=== PATIENT | female | born 1965 | race Caucasian/White ===

== ENCOUNTER 2017-06-24 06:48 | Day surgery (SDC) | payer BC ==
[~2017-06-24 06:48] MED LIST: Lactated Ringers 1,000 ML IV SCH; Sodium Chloride 0.9% 10 ML Syringe FLUSH PRN; Sodium Chloride 0.9% 2.5 ML Syringe FLUSH PRN
--- NOTE | 2017-06-24 07:25 | PCM.PREANE ---
Preanesthetic Assessment - Anesthesia/Transfusion/Family Hx Other Type of Anesthesia Reaction Comment: "HR went up during abdominoplasty" Family History of Anesthesia Reaction: No Transfusion History: Prior Transfusion Without Reaction Intubation History: Unknown - Review of Systems General: No Symptoms Pulmonary: No Symptoms Cardiovascular: No Symptoms Gastrointestinal: No Symptoms, Other (h/o colon polyps 5 years ago) Neurological: No Symptoms Other: Reports: None - Physical Assessment Height: 1.6 m Weight: 84.368 kg ASA Class: 2 Mental Status: Alert & Oriented x3 Airway Class: Mallampati = 2 Dentition: Reports: Normal Dentition Thyro-Mental Finger Breadths: 3 Mouth Opening Finger Breadths: 3 ROM/Head Extension: Full Lungs: Clear to Auscultation, Normal Respiratory Effort Cardiovascular: Regular Rate, Regular Rhythm - Lab Values: Laboratory Last Values Urine HCG, Qual NEGATIVE (NEGATIVE) 06/24/17 06:53 - Allergies Allergies/Adverse Reactions: Allergies Allergy/AdvReac Type Severity Reaction Status Date / Time No Known Allergies Allergy Verified 06/21/17 08:19 - Blood Blood Available: No - Anesthesia Plan Pre-Op Medication Ordered: None - Acknowledgements Anesthesia Type Planned: MAC Pt an Appropriate Candidate for the Planned Anesthesia: Yes Alternatives and Risks of Anesthesia Discussed w Pt/Guardian: Yes Pt/Guardian Understands and Agrees with Anesthesia Plan: Yes PreAnesthesia Questionnaire HEENT History: Reports: Other (See Below) Other HEENT History: wears glasses/contacts Cardiovascular History: Reports: Heart Murmur Gastrointestinal History: Reports: None Genitourinary History: Reports: None 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: Musculoskeletal History: Reports: Arthritis Other Musculoskeletal History: arthritis in rt knee Endocrine/Metabolic History: Reports: Obesity/BMI 30+ Hematologic History: Reports: Anemia, Blood Transfusion(s) Dermatologic History: Reports: None - Past Surgical History Head Surgeries/Procedures: Reports: None GI Surgical History: Reports: Bariatric Procedure Female Surgical History: Reports: Section (x3), Endometrial Ablation Dermatological Surgical History: Reports: Other (See Below) - SUBSTANCE USE Smoking Status *Q: Never Smoker Tobacco Use Within Last Twelve Months: No Days Per Week of Alcohol Use: 2 Number of Drinks Per Day: 1 Total Drinks Per Week: 2 Recreational Drug Use History: No - HOME MEDS Home Medications: Home Meds Multivitamin [Multivitamins] 1 tab PO DAILY 10/10/14 [History] - CURRENT (IN HOUSE) MEDS Current Meds: Current Medications Lactated Ringer's (Ringers, Lactated) 1,000 mls @ 125 mls/hr IV ASDIRECTED VIKA Last Admin: 06/24/17 06:59 Dose: 125 mls/hr Sodium Chloride (Saline Flush) 10 ml FLUSH ASDIRECTED PRN PRN Reason: Keep Vein Open Sodium Chloride (Saline Flush) 2.5 ml FLUSH ASDIRECTED PRN PRN Reason: Keep Vein Open Sodium Chloride (Saline Flush) 10 ml FLUSH ASDIRECTED PRN PRN Reason: Keep Vein Open Sodium Chloride (Saline Flush) 2.5 ml FLUSH ASDIRECTED PRN PRN Reason: Keep Vein Open
[2017-06-24] MEDS ORDERED: Lidocaine 2% 5 ML SDV ONE (07:46)
[2017-06-24] MEDS ORDERED: Propofol 200 MG/20 ML SDV ONE (07:46)
--- NOTE | 2017-06-24 08:24 | PCM.OPNOTE ---
- General Post-Op/Procedure Note Date of Surgery/Procedure: 06/24/17 Operative Procedure(s): Colonoscopy Findings: Mild hemorrhoidal disease. Normal colonoscopy Pre Op Diagnosis: History of colon polyps Post-Op Diagnosis: Normal colonoscopy Anesthesia Technique: MAC Primary Surgeon: Monica Mcneil Condition: Good
--- NOTE | 2017-06-24 08:30 | PCM48HPAN ---
Post Anesthesia Note - EVALUATION WITHIN 48HRS OF ANESTHETIC Vital Signs in Normal Range: Yes Patient Participated in Evaluation: Yes Respiratory Function Stable: Yes Airway Patent: Yes Cardiovascular Function Stable: Yes Hydration Status Stable: Yes Pain Control Satisfactory: Yes Nausea and Vomiting Control Satisfactory: Yes Mental Status Recovered: Yes Resp Rate: 16 - COMMENTS/OBSERVATIONS Free Text/Narrative:: No anesthesia problems, patient skipped recovery room phase of postoperative care.
[2017-06-24 08:41] VITALS: BP 126/66
--- NOTE | 2017-06-24 11:51 | OR ---
SURGEON: DARNELL MCINTYRE MD DATE OF PROCEDURE: 06/24/2017 PREOPERATIVE DIAGNOSIS: History of colon polyps. POSTOPERATIVE DIAGNOSIS: Normal colonoscopy. PROCEDURE PERFORMED: Screening colonoscopy. ANESTHESIA: MAC. INSTRUMENT USED: Olympus colonoscope. EXTENT OF EXAM: To the cecum. PREPARATION: Good. LIMITATIONS: None. INDICATIONS FOR EXAMINATION: The patient is a 51-year-old female who presents with a history of colon polyps. Her last colonoscopy was 5 years ago. The patient and I discussed the need for a repeat colonoscopy. We discussed the procedure, expected perioperative course, and risks including bleeding, infection, or damage to surrounding structures including perforation. The patient verbalized understanding and wishes to proceed. PROCEDURE IN DETAIL: The patient was brought into the endoscopy suite and placed in the left lateral decubitus position. A time-out was completed verifying the patient's name, age, date of , allergies, and procedure to be performed. A monitored anesthesia care was induced and continuous oxygen was provided via nasal cannula throughout the procedure. After adequate sedation was achieved, a digital rectal exam was performed. This exam revealed grade 2 hemorrhoids. A well lubricated colonoscope was inserted into the rectum and advanced under direct visualization to the level of cecum. The cecum was identified by both visual and anatomic landmarks. A photograph was taken of the cecal cap. I retroflexed the scope within the cecum and inspected the area underneath the cecal cap. No abnormalities were noted. The scope was then fully withdrawn while examining the color, texture, anatomy, and integrity of the mucosa from the cecum to the anal canal. The patient was found to have normal a colonic mucosa. The scope was brought into the rectum and retroflexed to allow visualization of the anal canal opening. The patient was noted to have grade 1-2 hemorrhoids. The scope was then straightened out and fully withdrawn from the patient. The patient tolerated procedure well and was taken to PACU in stable condition. The cecum to anus time was 8 minutes. ENDOSCOPIC DIAGNOSIS: Normal colonoscopy. RECOMMENDATIONS: Follow up in clinic in 5 years. AVNI TRIPATHI /[id number]
== END 2017-06-24 08:39 | disposition home or self-care (01) ==
LOC: MW.SDS 06:48
PROVIDERS: ATTEND Surgery
DX: Z12.11 Encounter for screening for malignant neoplasm of colon (principal); K64.1 Second degree hemorrhoids; B37.2 Candidiasis of skin and nail; M17.11 Unilateral primary osteoarthritis, right knee; L98.7 Excessive and redundant skin and subcutaneous tissue; L30.4 Erythema intertrigo; E66.9 Obesity, unspecified; Z68.30 Body mass index [BMI] 30.0-30.9, adult; Z86.010 Personal history of colon polyps; Z79.899 Other long term (current) drug therapy
CPT/HCPCS: 45378; 81025; J7120; J2704

== ENCOUNTER 2018-10-10 06:24 | Inpatient (IN) | payer BC ==
[~2018-10-10 06:24] MED LIST changes: +Acetaminophen 1,000 MG in Premix Bag 1 BAG IV SCH; +Famotidine 20 MG/2 ML SDV IVPUSH SCH; -Lactated Ringers 1,000 ML IV SCH; +Scopolamine 1.5 MG Transdermal Patch TRDERM SCH; -Sodium Chloride 0.9% 10 ML Syringe FLUSH PRN; -Sodium Chloride 0.9% 2.5 ML Syringe FLUSH PRN
[2018-10-10] MEDS: Lactated Ringers 1,000 ML IV SCH ×2 (07:00→16:28)
--- NOTE | 2018-10-10 07:15 | PCM.PREANE ---
Preanesthetic Assessment - Anesthesia/Transfusion/Family Hx Anesthesia History: Prior Anesthesia Without Reaction Other Type of Anesthesia Reaction Comment: "HR went up during abdominoplasty" Family History of Anesthesia Reaction: No Transfusion History: Prior Transfusion Without Reaction Intubation History: Unknown - Review of Systems General: No Symptoms Pulmonary: No Symptoms Cardiovascular: No Symptoms Gastrointestinal: No Symptoms Neurological: No Symptoms Other: Reports: None - Physical Assessment O2 Sat by Pulse Oximetry: 98 Respiratory Rate: 15 Vital Signs: Last Vital Signs Temp 36.3 C 10/10/18 06:51 Pulse 58 L 10/10/18 06:51 Resp 15 10/10/18 06:51 BP 152/89 H 10/10/18 06:51 Pulse Ox 98 10/10/18 06:51 Height: 5 ft 3 in Weight: 84.368 kg ASA Class: 2 Mental Status: Alert & Oriented x3 Airway Class: Mallampati = 2 Dentition: Reports: Normal Dentition Thyro-Mental Finger Breadths: 3 Mouth Opening Finger Breadths: 3 ROM/Head Extension: Full Lungs: Clear to Auscultation, Normal Respiratory Effort Cardiovascular: Regular Rate, Regular Rhythm - Allergies Allergies/Adverse Reactions: Allergies Allergy/AdvReac Type Severity Reaction Status Date / Time morphine Allergy Cannot Verified 10/10/18 07:04 Remember metal isiah Allergy Redness Uncoded 10/10/18 07:05 - Blood Blood Available: No - Anesthesia Plan Pre-Op Medication Ordered: None - Acknowledgements Anesthesia Type Planned: Spinal (general anesthesia back-up) Pt an Appropriate Candidate for the Planned Anesthesia: Yes Alternatives and Risks of Anesthesia Discussed w Pt/Guardian: Yes Pt/Guardian Understands and Agrees with Anesthesia Plan: Yes PreAnesthesia Questionnaire HEENT History: Reports: Other (See Below) Other HEENT History: wears glasses/contacts Cardiovascular History: Reports: Heart Murmur Gastrointestinal History: Reports: None Genitourinary History: Reports: 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: Musculoskeletal History: Reports: Arthritis Other Musculoskeletal History: arthritis in rt knee Endocrine/Metabolic History: Reports: Obesity/BMI 30+ Hematologic History: Reports: Anemia, Blood Transfusion(s) Dermatologic History: Reports: None - Past Surgical History Head Surgeries/Procedures: Reports: None GI Surgical History: Reports: Bariatric Procedure Female Surgical History: Reports: Section, Endometrial Ablation Other Female Surgeries/Procedures: x3, Abdominoplasty Dermatological Surgical History: Reports: Other (See Below) - SUBSTANCE USE Smoking Status *Q: Never Smoker Recreational Drug Use History: No - HOME MEDS Home Medications: Home Meds Ferrous Sulfate 325 mg PO BID 10/04/18 [History] - CURRENT (IN HOUSE) MEDS Current Meds: Current Medications Famotidine (Pepcid) 40 mg IVPUSH ONARRIVE [facility] Last Admin: 10/10/18 07:02 Dose: 40 mg Acetaminophen 1,000 mg/ Premix 100 mls @ 400 mls/hr IV ONARRIVE VIKA Last Admin: 10/10/18 07:04 Dose: 400 mls/hr Cefazolin Sodium/Dextrose 2 gm (/ Premix) 50 mls @ 100 mls/hr IV ONCALL VIKA Ropivacaine 49.25 ml/Ketorolac Tromethamine 30 mg/Epinephrine HCl 0.5 mg/ Clonidine HCl 80 mcg/ Sodium Chloride 75 mls @ 50 mls/sec INJECT ASDIRECTED VIKA Lactated Ringer's (Ringers, Lactated) 1,000 mls @ 100 mls/hr IV ASDIRECTED VIKA Last Admin: 10/10/18 07:00 Dose: 100 mls/hr Tranexamic Acid 2,000 mg/ (Sodium Chloride) 120 mls @ 600 mls/hr IV ASDIRECTED ONE Stop: 10/10/18 08:11 Scopolamine (Transderm-Scop) 1.5 mg TRDERM ONARR[facility] Last Admin: 10/10/18 07:01 Dose: 1.5 mg
[2018-10-10] MEDS ORDERED: Sodium Chloride 0.9% 40 ML ONE (07:19)
[2018-10-10] MEDS ORDERED: ePHEDrine 50 MG/ML SDV ONE (07:19)
[2018-10-10] MEDS ORDERED: Ondansetron 4 MG/2 ML SDV ONE (07:19)
[2018-10-10] MEDS ORDERED: ceFAZolin 1 GM Vial ONE (07:19)
[2018-10-10] MEDS ORDERED: Propofol 200 MG/20 ML SDV ONE ×3 (07:22→09:28)
[2018-10-10] MEDS ORDERED: Midazolam 1 MG/ML 2 ML SDV ONE (07:22)
[2018-10-10] MEDS ORDERED: Tranexamic Acid 2,000 MG in Sodium Chloride 0.9% 100 ML IV ONE (08:00)
[2018-10-10] MEDS ORDERED: Ropivacaine 49.25 ML, Ketorolac 30 MG, EPINEPHrine 0.5 MG, cloNIDine 80 MCG in Sodium C... INJECT SCH (08:00)
[2018-10-10] MEDS ORDERED: ceFAZolin 2 GM in Premix Bag 1 BAG IV SCH (08:00)
[2018-10-10] MEDS ORDERED: fentaNYL 100 MCG/2 ML SDV ONE (09:15)
[2018-10-10] MEDS ORDERED: Glycopyrrolate 0.2 MG/ML SDV ONE (09:56)
[2018-10-10] MEDS ORDERED: Metoprolol Tartrate 5 MG/5 ML SDV ONE (09:59)
[2018-10-10] MEDS ORDERED: HYDROmorphone 2 MG/ML SDV IVPUSH PRN (10:17)
[2018-10-10] MEDS ORDERED: Bisacodyl 10 MG Supp RECTAL PRN (10:17)
[2018-10-10] MEDS ORDERED: Aluminum Hydroxide/Magnesium Hydroxide/Simethicone Susp 30 ML Cup PO PRN (10:17)
[2018-10-10] MEDS ORDERED: diphenhydrAMINE 25 MG Cap PO PRN (10:17)
[2018-10-10] MEDS ORDERED: Ondansetron 4 MG/2 ML SDV IVPUSH PRN (10:17)
[2018-10-10] MEDS ORDERED: Docusate Sodium 100 MG Cap PO PRN (10:17)
[2018-10-10] MEDS ORDERED: Sodium Chloride 0.9% 2.5 ML Syringe FLUSH PRN (10:19)
[2018-10-10] MEDS ORDERED: Sodium Chloride 0.9% 10 ML Syringe FLUSH PRN (10:19)
--- NOTE | 2018-10-10 10:53 | PCM.OPNOTE ---
- General Post-Op/Procedure Note Date of Surgery/Procedure: 10/10/18 Operative Procedure(s): R TKA Post-Op Diagnosis: DJD R knee Anesthesia Technique: Moderate Sedation, Spinal Primary Surgeon: Madiha Harris Visually Impaired Teacher: Roseann Westfall Visually Impaired Teacher: Virginia Jo EBL in mLs: 50 Condition: Good Free Text/Narrative:: tt=47 min #[id number]
[2018-10-10] MEDS: Ketorolac 30 MG/ML SDV IVPUSH SCH ×3 (11:00→22:39)
[2018-10-10] MEDS ORDERED: HYDROmorphone 1 MG/ML Syringe IVPUSH PRN (11:47)
[2018-10-10] MEDS: Acetaminophen 1,000 MG in Premix Bag 1 BAG IV SCH ×2 (13:25→19:28)
--- NOTE | 2018-10-10 13:57 | OR ---
SURGEON: Madiha Harris MD DATE OF PROCEDURE: 10/10/2018 PREOPERATIVE DIAGNOSIS: Degenerative joint disease, right knee, tricompartmental. POSTOPERATIVE DIAGNOSIS: Degenerative joint disease, right knee, tricompartmental. PROCEDURE PERFORMED: Right total knee arthroplasty using patient specific instrumentation. PRIMARY SURGEON: Madiha Harris MD. TECHNICAL INSTRUCTOR COURSE DEVELOPER: Cordelia Wade and BASSAM Perdomo. ANESTHESIA: Spinal with sedation. ESTIMATED BLOOD LOSS: 50 mL. TOURNIQUET TIME: 47 minutes. COMPLICATIONS: None. DVT PROPHYLAXIS: PAS boot to the nonoperative leg. IMPLANTS USED: Guicho persona femoral component size 9 standard (LPS), tibial component size E, 11 mm all-polyethylene articular surface, and 35 mm all-polyethylene patella. FINDINGS: Intraoperative findings showed severe tricompartmental degenerative changes. There was complete eburnation of the bone along the medial femoral condyle. Osteophyte formation was also noted. No significant synovitis was found. Bone quality appeared normal. BRIEF HISTORY: Sierra is a 53-year-old female who has had complaint of progressive right knee pain. Her x-rays did confirm degenerative findings. Due to her lack of response to conservative treatment, I did recommend surgical intervention. The risks and goals of the procedure were discussed with the patient and were documented preoperatively. She agreed to proceed. DESCRIPTION OF PROCEDURE: The patient was properly identified and brought to the operating room. The patient was then transferred from the operating room cart and placed on the operating table in a supine position. Anesthesia was administered by the anesthesia staff. After adequate anesthesia was obtained, a well-padded tourniquet was applied to the surgical lower extremity. Fonseca catheter was placed. The lower extremity was then prepped in standard fashion using ChloraPrep solution. It was then sterilely draped. A time-out was performed to ensure correct site and procedure. Preoperative antibiotics were given along with one gram of tranexamic acid IV. The surgical site had been marked preoperatively. An Esmarch was used to exsanguinate the right lower extremity and the tourniquet was inflated. An incision was made over the anterior aspect of the knee. The subcutaneous tissues were dissected down to the level of the fascia. A medial parapatellar approach to the knee was made. A portion of the infrapatellar fat pad was then excised. The distal femur was then exposed. The femoral patient-specific cutting guide was then placed. Pins were also placed. The distal femoral cutting block was placed and the distal femoral cut was made. Instrumentation was then removed. Both Whitesides' line and the epicondylar axis were then marked with electrocautery. The 4-in-1 cutting block was placed. This was placed in a slightly externally rotated position, which corresponded well with the previously drawn lines. The cutting guide was then pinned into position. An Marcos wing guide was used to check the depth of resection of our anterior condylar cut and it was felt that no notching would occur. The anterior condylar cut was then made followed by the posterior condylar cut. Both the posterior chamfer and anterior chamfer cuts were then made. The cutting block was then removed along with the excess bony remnants. We then turned our attention to the tibia. The anterior cruciate ligament and posterior cruciate ligament were released and a posterior cruciate ligament retractor was placed to allow the tibia to be pulled anteriorly. The tibial patient-specific guide was then placed on the proximal tibia. This fit anatomically. The pins were then placed. The proximal tibia cutting guide was then placed and screwed into position. The proximal tibial resection was then made with care being taken to protect the patellar tendon. The bony resection was then removed. The remainder of the medial and lateral meniscus were then excised. Care was taken to protect the popliteus tendon. The tibia was then sized to the appropriate size. The distal femur was then elevated. The posterior capsule was stripped off the distal femur both medially and laterally. The posterior capsule along with the medial and lateral gutters were then injected with a standard mixture consisting of clonidine, epinephrine, Toradol, and Ropivacaine, unless any allergies were found preoperatively. The femoral component was then placed onto the distal femur in a slightly lateral position. This fit the femur well. A box cut was then made without difficulty. This was then removed. The tibial trial along with the polyethylene liner was then placed. The knee came easily into full extension and was stable to varus and valgus stressing both in full extension and flexion. Any additional releases were performed at this time. We then returned our attention to the patella. The patella was everted and towel clamps were used to hold the patella in position. It was resected to a 15 millimeter thickness. It was then sized to the appropriate size. It was prepared in the usual fashion after placing the predetermined size clamps. This was placed in a slightly superior and medial position. The clamp was then removed. The patellar trial button was placed. The knee was taken through a range of motion using the no-touch technique. The patella tracked centrally. A drop jose a was then placed to check alignment. All instruments were then removed from the knee. The tibial sizer was then placed on the tibia. The tibia was prepared in the usual fashion using the reamer and broach. This was then removed. All bony surfaces were copiously irrigated with Pulsavac solution. They were then suctioned dry. Cement was prepared on the back table in the usual manner. Once it was prepared, the bone ends were again suctioned dry. The tibia was cemented into place first. This was malleted into position. Excess cement was then cleared. The femur was then placed in a similar manner. We placed the polyethylene trial into place and the knee was brought into full extension. An axial load was placed while keeping the knee in full extension. The patella button was also cemented into position and the clamp was used to hold this in place as the cement was allowed to cure. The wound was again copiously irrigated with saline solution using a Pulsavac chief sustainability officer. Following this 1 g of tranexamic acid was applied to the wound topically. After we had adequate curing of the cement, the knee was again taken through a range of motion. The size of the polyethylene was then determined. The polyethylene trial was then removed. The tibial tray was suctioned to make sure there was no remaining soft tissue or cement. Excess cement was cleared from around the edges of the prosthesis as well. The tourniquet was then deflated. We were able to observe for any excess bleeding and none was noted. Electrocautery was used to maintain hemostasis. An additional gram of tranexamic acid was given IV. The retractors were again placed and the predetermined polyethylene was then placed. This was locked into position without difficulty. The knee was again taken through a range of motion with no change from the prior exam. The fascial layer was closed with Number One Vicryl. The subcutaneous tissues were closed with 2-0 Vicryl. The skin was closed with 3-0 Monocryl, steri- strips, and mastisol. Xeroform gauze was placed over the wound and a bulky dressing was applied. The patient was then awakened from anesthesia and transferred back to the operating room cart. They were brought to the recovery room in stable condition. All needle and sponge counts were correct. MAT TRIPATHI /[id number] MTDD
--- NOTE | 2018-10-10 14:11 | CR ---
EXAMINATION: Right knee HISTORY: Total knee hardware COMPARISON: 05/14/2017 TECHNIQUE: 2 views FINDINGS/IMPRESSION: Right total knee hardware is demonstrated in good position and alignment. Operative soft tissue changes are noted.
[2018-10-10] MEDS: ceFAZolin 2 GM in Premix Bag 1 BAG IV SCH (17:58)
[2018-10-10] MEDS: oxyCODONE 5 MG Tab PO PRN (18:07)
[2018-10-10] MEDS: Ferrous Sulfate 325 MG Tab PO SCH (21:19)
--- NOTE | 2018-10-11 00:04 | PCM48HPAN ---
Post Anesthesia Note - EVALUATION WITHIN 48HRS OF ANESTHETIC Vital Signs in Normal Range: Yes Patient Participated in Evaluation: Yes Respiratory Function Stable: Yes Airway Patent: Yes Cardiovascular Function Stable: Yes Hydration Status Stable: Yes Pain Control Satisfactory: Yes Nausea and Vomiting Control Satisfactory: Yes Mental Status Recovered: Yes Pulse Rate: 55 SaO2: 97 Resp Rate: 17 Temperature: 97.1 F Blood Pressure: 128/71
[2018-10-11] MEDS: Acetaminophen 1,000 MG in Premix Bag 1 BAG IV SCH (00:27)
[2018-10-11] MEDS: ceFAZolin 2 GM in Premix Bag 1 BAG IV SCH (00:46)
[2018-10-11] MEDS: Ketorolac 30 MG/ML SDV IVPUSH SCH (04:50)
[2018-10-11] MEDS: oxyCODONE 5 MG Tab PO PRN (05:36)
[2018-10-11] MEDS: Acetaminophen/oxyCODONE 325-5 MG Tab PO PRN ×2 (07:58→12:33)
[2018-10-11] MEDS: Ferrous Sulfate 325 MG Tab PO SCH (08:02)
[2018-10-11] MEDS ORDERED: Polyethylene Glycol 3350 Powder 17 GM Packet PO SCH (09:00)
[2018-10-11] MEDS ORDERED: Aspirin 325 MG Tab.EC PO SCH (09:00)
[2018-10-11] MEDS ORDERED: Celecoxib 100 MG Cap PO SCH (09:00)
[2018-10-11] MEDS ORDERED: Famotidine 20 MG Tab PO SCH (09:00)
[2018-10-11 09:32] VITALS: BP 160/60
--- NOTE | 2018-10-11 12:15 | PCM.SURGPN ---
- General Info Date of Service: 10/11/18 Date of Surgery/Procedure: 10/10/18 POD#: 1 Functional Status: Reports: Pain Controlled, Tolerating Diet, Ambulating, Urinating - Review of Systems General: Reports: No Symptoms Pulmonary: Denies: Shortness of Breath Cardiovascular: Denies: Palpitations, Lightheadedness Musculoskeletal: Reports: Leg Pain Systems Review Comment:: pt up to chair for breakfast pain controlled with PO/IV pain medications has been OOB ambulating no CP/SOB/lightheadedness, no N/V no specific concerns today - Patient Data Vitals - Most Recent: Last Vital Signs Temp 98.2 F 10/11/18 08:00 Pulse 64 10/11/18 08:00 Resp 16 10/11/18 08:00 BP 160/60 H 10/11/18 08:00 Pulse Ox 97 10/11/18 08:00 Weight - Most Recent: 84.368 kg I&O - Last 24 Hours: Intake & Output 10/10/18 10/11/18 10/11/18 22:59 06:59 14:59 Intake Total 100 3922 Output Total 6000 600 Balance 100 -2078 -600 Lab Results Last 24 Hrs: Laboratory Results - last 24 hr 10/11/18 Range/Units 05:21 Hgb 8.0 L (12.0-16.0) g/dL Hct 28.5 L (36.0-46.0) % Med Orders - Current: Current Medications Al Hydroxide/Mg Hydroxide (Mag-Al Plus) 30 ml PO Q4H PRN PRN Reason: Indigestion Aspirin (Ecotrin) 325 mg PO BID [facility] Last Admin: 10/11/18 08:01 Dose: 325 mg Bisacodyl (Dulcolax) 10 mg RECTAL DAILY PRN PRN Reason: Constipation Celecoxib (Celebrex) 200 mg PO BID [facility] Last Admin: 10/11/18 08:01 Dose: 200 mg Diphenhydramine HCl (Benadryl) 25 - 50 mg PO Q6H PRN PRN Reason: Itching Docusate Sodium (Colace) 100 mg PO BID PRN PRN Reason: Constipation Famotidine (Pepcid) 40 mg PO DAILY [facility] Last Admin: 10/11/18 08:01 Dose: 40 mg Ferrous Sulfate (Ferrous Sulfate) 325 mg PO BID [facility] Last Admin: 10/11/18 08:02 Dose: 325 mg Hydromorphone HCl (Dilaudid) 0.5 - 1 mg IVPUSH Q3H PRN PRN Reason: Pain Last Admin: 10/10/18 11:53 Dose: 1 mg Lactated Ringer's (Ringers, Lactated) 1,000 mls @ 100 mls/hr IV ASDIRECTED [facility] Last Admin: 10/10/18 16:28 Dose: 100 mls/hr Ondansetron HCl (Zofran) 4 mg IVPUSH Q6H PRN PRN Reason: Nausea/Vomiting Oxycodone/Acetaminophen (Percocet 325-5 Mg) 1 - 2 tab PO Q4H PRN PRN Reason: Pain Last Admin: 10/11/18 07:58 Dose: 2 tab Polyethylene Glycol (Miralax) 17 gm PO DAILY [facility] Last Admin: 10/11/18 08:00 Dose: 17 gm Scopolamine (Transderm-Scop) 1.5 mg TRDERM ONARRIVE [facility] Last Admin: 10/10/18 07:01 Dose: 1.5 mg Sodium Chloride (Saline Flush) 10 ml FLUSH ASDIRECTED PRN PRN Reason: Keep Vein Open Sodium Chloride (Saline Flush) 2.5 ml FLUSH ASDIRECTED PRN PRN Reason: Keep Vein Open Discontinued Medications Cefazolin Sodium (Ancef) Confirm Administered Dose 2 gm .ROUTE .STK-MED ONE Stop: 10/10/18 07:20 Ephedrine Sulfate (Ephedrine Sulfate) Confirm Administered Dose 50 mg .ROUTE .STK-MED ONE Stop: 10/10/18 07:20 Famotidine (Pepcid) 40 mg IVPUSH ONARRIVE [facility] Last Admin: 10/10/18 07:02 Dose: 40 mg Fentanyl (Sublimaze) Confirm Administered Dose 100 mcg .ROUTE .STK-MED ONE Stop: 10/10/18 09:16 Glycopyrrolate (Robinul) Confirm Administered Dose 0.2 mg .ROUTE .STK-MED ONE Stop: 10/10/18 09:57 Hydromorphone HCl (Dilaudid) 0.5 - 1 mg IVPUSH Q3H PRN PRN Reason: Pain Acetaminophen 1,000 mg/ Premix 100 mls @ 400 mls/hr IV ONARRIVE [facility] Last Admin: 10/10/18 07:04 Dose: 400 mls/hr Cefazolin Sodium/Dextrose 2 gm (/ Premix) 50 mls @ 100 mls/hr IV ONCALL [facility] Ropivacaine 49.25 ml/Ketorolac Tromethamine 30 mg/Epinephrine HCl 0.5 mg/ Clonidine HCl 80 mcg/ Sodium Chloride 75 mls @ 50 mls/sec INJECT ASDIRECTED [facility] Tranexamic Acid 2,000 mg/ (Sodium Chloride) 120 mls @ 600 mls/hr IV ASDIRECTED ONE Stop: 10/10/18 08:11 Last Admin: 10/10/18 16:16 Dose: Not Given Sodium Chloride (Normal Saline) Confirm Administered Dose 40 mls @ as directed .ROUTE .STK-MED ONE Stop: 10/10/18 07:20 Acetaminophen 1,000 mg/ Premix 100 mls @ 400 mls/hr IV Q6H [facility] Stop: 10/11/18 01:14 Last Admin: 10/11/18 00:27 Dose: 400 mls/hr Cefazolin Sodium/Dextrose 2 gm (/ Premix) 50 mls @ 100 mls/hr IV Q8H [facility] Stop: 10/11/18 01:29 Last Admin: 10/11/18 00:46 Dose: 100 mls/hr Ketorolac Tromethamine (Toradol) 30 mg IVPUSH Q6H [facility] Stop: 10/11/18 05:00 Last Admin: 10/11/18 04:50 Dose: 30 mg Metoprolol Tartrate (Lopressor) Confirm Administered Dose 5 mg .ROUTE .STK-MED ONE Stop: 10/10/18 10:00 Midazolam HCl (Versed 1 Mg/Ml) Confirm Administered Dose 2 mg .ROUTE .STK-MED ONE Stop: 10/10/18 07:23 Ondansetron HCl (Zofran) Confirm Administered Dose 4 mg .ROUTE .STK-MED ONE Stop: 10/10/18 07:20 Oxycodone HCl (Oxycodone) 5 - 10 mg PO Q4H PRN PRN Reason: Pain Stop: 10/11/18 06:00 Last Admin: 10/11/18 05:36 Dose: 10 mg Propofol (Diprivan 20 Ml) Confirm Administered Dose 200 mg .ROUTE .STK-MED ONE Stop: 10/10/18 07:23 Propofol (Diprivan 20 Ml) Confirm Administered Dose 200 mg .ROUTE .STK-MED ONE Stop: 10/10/18 07:24 Propofol (Diprivan 20 Ml) Confirm Administered Dose 400 mg .ROUTE .STK-MED ONE Stop: 10/10/18 09:29 Tranexamic Acid (Cyklokapron) Confirm Administered Dose 2,000 mg .ROUTE .STK- MED ONE Stop: 10/10/18 07:42 - Exam Wound/Incisions: Dressing Dry and Intact. No: Drainage, Erythema General: Alert, Oriented Cardiovascular: Regular Rate, Regular Rhythm Extremities: Other (exam RLE - dressing c/d/i, at/ehl/gastroc 5/5, dp 2+, sensation intact distally. ) Physical Findings Comment:: vss, afeb uo 2000+mL hgb 8.0 - Problem List Review Problem List Initiated/Reviewed/Updated: Yes - My Orders Last 24 Hours: Active Orders 24 hr Category Date Time Status Urinary Catheter Removal [RC] ASDIRECTED Care 10/11/18 06:00 Active HEMOGLOBIN/HEMATOCRIT,HH [HEME] DAILY Lab 10/12/18 06:00 Ordered Acetaminophen/oxyCODONE [Percocet 325-5 MG] Med 10/11/18 06:00 Active 1 - 2 tab PO Q4H PRN Aspirin [Ecotrin] Med 10/11/18 09:00 Active 325 mg PO BID Celecoxib [CeleBREX] Med 10/11/18 09:00 Active 200 mg PO BID Famotidine [Pepcid] Med 10/11/18 09:00 Active 40 mg PO DAILY Ferrous Sulfate Med 10/10/18 21:00 Active 325 mg PO BID HYDROmorphone [Dilaudid] Med 10/10/18 11:47 Active 0.5 - 1 mg IVPUSH Q3H PRN Polyethylene Glycol 3350 [MiraLAX] Med 10/11/18 09:00 Active 17 gm PO DAILY Convert IV to Saline Lock [OM.PC] PRN Oth 10/11/18 06:00 Ordered Medication Orders Al Hydroxide/Mg Hydroxide (Mag-Al Plus) 30 ml PO Q4H PRN PRN Reason: Indigestion Aspirin (Ecotrin) 325 mg PO BID [facility] Last Admin: 10/11/18 08:01 Dose: 325 mg Bisacodyl (Dulcolax) 10 mg RECTAL DAILY PRN PRN Reason: Constipation Celecoxib (Celebrex) 200 mg PO BID [facility] Last Admin: 10/11/18 08:01 Dose: 200 mg Diphenhydramine HCl (Benadryl) 25 - 50 mg PO Q6H PRN PRN Reason: Itching Docusate Sodium (Colace) 100 mg PO BID PRN PRN Reason: Constipation Famotidine (Pepcid) 40 mg PO DAILY [facility] Last Admin: 10/11/18 08:01 Dose: 40 mg Ferrous Sulfate (Ferrous Sulfate) 325 mg PO BID [facility] Last Admin: 10/11/18 08:02 Dose: 325 mg Admin: 10/10/18 21:19 Dose: 325 mg Hydromorphone HCl (Dilaudid) 0.5 - 1 mg IVPUSH Q3H PRN PRN Reason: Pain Last Admin: 10/10/18 11:53 Dose: 1 mg Lactated Ringer's (Ringers, Lactated) 1,000 mls @ 100 mls/hr IV ASDIRECTED [facility] Last Admin: 10/10/18 16:28 Dose: 100 mls/hr Infusion: 10/10/18 16:28 Dose: 100 mls/hr Admin: 10/10/18 07:00 Dose: 100 mls/hr Ondansetron HCl (Zofran) 4 mg IVPUSH Q6H PRN PRN Reason: Nausea/Vomiting Oxycodone/Acetaminophen (Percocet 325-5 Mg) 1 - 2 tab PO Q4H PRN PRN Reason: Pain Last Admin: 10/11/18 07:58 Dose: 2 tab Polyethylene Glycol (Miralax) 17 gm PO DAILY [facility] Last Admin: 10/11/18 08:00 Dose: 17 gm Scopolamine (Transderm-Scop) 1.5 mg TRDERM ONARRIVE [facility] Last Admin: 10/10/18 07:01 Dose: 1.5 mg Sodium Chloride (Saline Flush) 10 ml FLUSH ASDIRECTED PRN PRN Reason: Keep Vein Open Sodium Chloride (Saline Flush) 2.5 ml FLUSH ASDIRECTED PRN PRN Reason: Keep Vein Open - Assessment Assessment (Free Text/Narrative):: POD#1 R TKA anemia - Plan Plan (Free Text/Narrative):: DC IV fluids - saline lock IV DC wiley dilaudid IV prn breakthrough pain DC oxycodone - percocet 5/325 prn available ASA 325mg PO BID as DVT prophylaxis dressing change to aquacel prior to discharge PT today pt has wheeled walker or script has been written anticipate up to 72 hour stay for IV pain medication and continued physical therapy pt will require FWW for safe mobility/stability until increased strength/gait independence s/p TKA - has been safely mobilizing in room with FWW. d/ch medications written if pt does well with PT, pain control, and mobilization, may d/ch to home today
--- NOTE | 2018-10-11 13:56 | PCM.SURGPN ---
- General Info Date of Service: 10/11/18 Date of Surgery/Procedure: 10/10/18 POD#: 1 Functional Status: Reports: Pain Controlled, Tolerating Diet, Ambulating, Urinating - Patient Data Vitals - Most Recent: Last Vital Signs Temp 98.2 F 10/11/18 08:00 Pulse 64 10/11/18 08:00 Resp 16 10/11/18 08:00 BP 160/60 H 10/11/18 08:00 Pulse Ox 97 10/11/18 08:00 Weight - Most Recent: 84.368 kg I&O - Last 24 Hours: Intake & Output 10/10/18 10/11/18 10/11/18 22:59 06:59 14:59 Intake Total 100 3922 1500 Output Total 6000 2200 Balance 100 -4718 -700 Lab Results Last 24 Hrs: Laboratory Results - last 24 hr 10/11/18 Range/Units 05:21 Hgb 8.0 L (12.0-16.0) g/dL Hct 28.5 L (36.0-46.0) % Med Orders - Current: Current Medications Al Hydroxide/Mg Hydroxide (Mag-Al Plus) 30 ml PO Q4H PRN PRN Reason: Indigestion Aspirin (Ecotrin) 325 mg PO BID [facility] Last Admin: 10/11/18 08:01 Dose: 325 mg Bisacodyl (Dulcolax) 10 mg RECTAL DAILY PRN PRN Reason: Constipation Celecoxib (Celebrex) 200 mg PO BID [facility] Last Admin: 10/11/18 08:01 Dose: 200 mg Diphenhydramine HCl (Benadryl) 25 - 50 mg PO Q6H PRN PRN Reason: Itching Docusate Sodium (Colace) 100 mg PO BID PRN PRN Reason: Constipation Famotidine (Pepcid) 40 mg PO DAILY [facility] Last Admin: 10/11/18 08:01 Dose: 40 mg Ferrous Sulfate (Ferrous Sulfate) 325 mg PO BID [facility] Last Admin: 10/11/18 08:02 Dose: 325 mg Hydromorphone HCl (Dilaudid) 0.5 - 1 mg IVPUSH Q3H PRN PRN Reason: Pain Last Admin: 10/10/18 11:53 Dose: 1 mg Lactated Ringer's (Ringers, Lactated) 1,000 mls @ 100 mls/hr IV ASDIRECTED [facility] Last Admin: 10/10/18 16:28 Dose: 100 mls/hr Ondansetron HCl (Zofran) 4 mg IVPUSH Q6H PRN PRN Reason: Nausea/Vomiting Oxycodone/Acetaminophen (Percocet 325-5 Mg) 1 - 2 tab PO Q4H PRN PRN Reason: Pain Last Admin: 10/11/18 12:33 Dose: 2 tab Polyethylene Glycol (Miralax) 17 gm PO DAILY [facility] Last Admin: 10/11/18 08:00 Dose: 17 gm Scopolamine (Transderm-Scop) 1.5 mg TRDERM ONARRIVE [facility] Last Admin: 10/10/18 07:01 Dose: 1.5 mg Sodium Chloride (Saline Flush) 10 ml FLUSH ASDIRECTED PRN PRN Reason: Keep Vein Open Sodium Chloride (Saline Flush) 2.5 ml FLUSH ASDIRECTED PRN PRN Reason: Keep Vein Open Discontinued Medications Cefazolin Sodium (Ancef) Confirm Administered Dose 2 gm .ROUTE .STK-MED ONE Stop: 10/10/18 07:20 Ephedrine Sulfate (Ephedrine Sulfate) Confirm Administered Dose 50 mg .ROUTE .STK-MED ONE Stop: 10/10/18 07:20 Famotidine (Pepcid) 40 mg IVPUSH ONARRIVE [facility] Last Admin: 10/10/18 07:02 Dose: 40 mg Fentanyl (Sublimaze) Confirm Administered Dose 100 mcg .ROUTE .STK-MED ONE Stop: 10/10/18 09:16 Glycopyrrolate (Robinul) Confirm Administered Dose 0.2 mg .ROUTE .STK-MED ONE Stop: 10/10/18 09:57 Hydromorphone HCl (Dilaudid) 0.5 - 1 mg IVPUSH Q3H PRN PRN Reason: Pain Acetaminophen 1,000 mg/ Premix 100 mls @ 400 mls/hr IV ONARRIVE [facility] Last Admin: 10/10/18 07:04 Dose: 400 mls/hr Cefazolin Sodium/Dextrose 2 gm (/ Premix) 50 mls @ 100 mls/hr IV ONCALL [facility] Ropivacaine 49.25 ml/Ketorolac Tromethamine 30 mg/Epinephrine HCl 0.5 mg/ Clonidine HCl 80 mcg/ Sodium Chloride 75 mls @ 50 mls/sec INJECT ASDIRECTED [facility] Tranexamic Acid 2,000 mg/ (Sodium Chloride) 120 mls @ 600 mls/hr IV ASDIRECTED ONE Stop: 10/10/18 08:11 Last Admin: 10/10/18 16:16 Dose: Not Given Sodium Chloride (Normal Saline) Confirm Administered Dose 40 mls @ as directed .ROUTE .STK-MED ONE Stop: 10/10/18 07:20 Acetaminophen 1,000 mg/ Premix 100 mls @ 400 mls/hr IV Q6H [facility] Stop: 10/11/18 01:14 Last Admin: 10/11/18 00:27 Dose: 400 mls/hr Cefazolin Sodium/Dextrose 2 gm (/ Premix) 50 mls @ 100 mls/hr IV Q8H [facility] Stop: 10/11/18 01:29 Last Admin: 10/11/18 00:46 Dose: 100 mls/hr Ketorolac Tromethamine (Toradol) 30 mg IVPUSH Q6H [facility] Stop: 10/11/18 05:00 Last Admin: 10/11/18 04:50 Dose: 30 mg Metoprolol Tartrate (Lopressor) Confirm Administered Dose 5 mg .ROUTE .STK-MED ONE Stop: 10/10/18 10:00 Midazolam HCl (Versed 1 Mg/Ml) Confirm Administered Dose 2 mg .ROUTE .STK-MED ONE Stop: 10/10/18 07:23 Ondansetron HCl (Zofran) Confirm Administered Dose 4 mg .ROUTE .STK-MED ONE Stop: 10/10/18 07:20 Oxycodone HCl (Oxycodone) 5 - 10 mg PO Q4H PRN PRN Reason: Pain Stop: 10/11/18 06:00 Last Admin: 10/11/18 05:36 Dose: 10 mg Propofol (Diprivan 20 Ml) Confirm Administered Dose 200 mg .ROUTE .STK-MED ONE Stop: 10/10/18 07:23 Propofol (Diprivan 20 Ml) Confirm Administered Dose 200 mg .ROUTE .STK-MED ONE Stop: 10/10/18 07:24 Propofol (Diprivan 20 Ml) Confirm Administered Dose 400 mg .ROUTE .STK-MED ONE Stop: 10/10/18 09:29 Tranexamic Acid (Cyklokapron) Confirm Administered Dose 2,000 mg .ROUTE .STK- MED ONE Stop: 10/10/18 07:42 - Problem List & Annotations (1) S/P knee replacement SNOMED Code(s): 381602301, 770065255, [id number] Code(s): Z96.659 - PRESENCE OF UNSPECIFIED ARTIFICIAL KNEE JOINT Status: Acute Current Visit: Yes - My Orders Last 24 Hours: Active Orders 24 hr Category Date Time Status Ready for Discharge [RC] PER UNIT ROUTINE Care 10/11/18 12:41 Active Urinary Catheter Removal [RC] ASDIRECTED Care 10/11/18 06:00 Active HEMOGLOBIN/HEMATOCRIT,HH [HEME] DAILY Lab 10/12/18 06:00 Ordered Acetaminophen/oxyCODONE [Percocet 325-5 MG] Med 10/11/18 06:00 Active 1 - 2 tab PO Q4H PRN Aspirin [Ecotrin] Med 10/11/18 09:00 Active 325 mg PO BID Celecoxib [CeleBREX] Med 10/11/18 09:00 Active 200 mg PO BID Famotidine [Pepcid] Med 10/11/18 09:00 Active 40 mg PO DAILY Ferrous Sulfate Med 10/10/18 21:00 Active 325 mg PO BID Polyethylene Glycol 3350 [MiraLAX] Med 10/11/18 09:00 Active 17 gm PO DAILY Convert IV to Saline Lock [OM.PC] PRN Oth 10/11/18 06:00 Ordered Medication Orders Al Hydroxide/Mg Hydroxide (Mag-Al Plus) 30 ml PO Q4H PRN PRN Reason: Indigestion Aspirin (Ecotrin) 325 mg PO BID [facility] Last Admin: 10/11/18 08:01 Dose: 325 mg Bisacodyl (Dulcolax) 10 mg RECTAL DAILY PRN PRN Reason: Constipation Celecoxib (Celebrex) 200 mg PO BID [facility] Last Admin: 10/11/18 08:01 Dose: 200 mg Diphenhydramine HCl (Benadryl) 25 - 50 mg PO Q6H PRN PRN Reason: Itching Docusate Sodium (Colace) 100 mg PO BID PRN PRN Reason: Constipation Famotidine (Pepcid) 40 mg PO DAILY [facility] Last Admin: 10/11/18 08:01 Dose: 40 mg Ferrous Sulfate (Ferrous Sulfate) 325 mg PO BID [facility] Last Admin: 10/11/18 08:02 Dose: 325 mg Admin: 10/10/18 21:19 Dose: 325 mg Hydromorphone HCl (Dilaudid) 0.5 - 1 mg IVPUSH Q3H PRN PRN Reason: Pain Last Admin: 10/10/18 11:53 Dose: 1 mg Lactated Ringer's (Ringers, Lactated) 1,000 mls @ 100 mls/hr IV ASDIRECTED [facility] Last Admin: 10/10/18 16:28 Dose: 100 mls/hr Infusion: 10/10/18 16:28 Dose: 100 mls/hr Admin: 10/10/18 07:00 Dose: 100 mls/hr Ondansetron HCl (Zofran) 4 mg IVPUSH Q6H PRN PRN Reason: Nausea/Vomiting Oxycodone/Acetaminophen (Percocet 325-5 Mg) 1 - 2 tab PO Q4H PRN PRN Reason: Pain Last Admin: 10/11/18 12:33 Dose: 2 tab Admin: 10/11/18 07:58 Dose: 2 tab Polyethylene Glycol (Miralax) 17 gm PO DAILY [facility] Last Admin: 10/11/18 08:00 Dose: 17 gm Scopolamine (Transderm-Scop) 1.5 mg TRDERM ONARRIVE [facility] Last Admin: 10/10/18 07:01 Dose: 1.5 mg Sodium Chloride (Saline Flush) 10 ml FLUSH ASDIRECTED PRN PRN Reason: Keep Vein Open Sodium Chloride (Saline Flush) 2.5 ml FLUSH ASDIRECTED PRN PRN Reason: Keep Vein Open
--- NOTE | 2018-10-12 07:31 | DISCH ---
DATE OF DISCHARGE: 10/11/2018 PRIMARY CARE PHYSICIAN: Raj De Jesus M.D. ADMITTING DIAGNOSIS: Degenerative joint disease, right knee, tricompartmental. OTHER MEDICAL DIAGNOSES: 1. History of heart murmur. 2. Morbid obesity, status post bariatric weight loss surgery. 3. Anemia. POSTOPERATIVE DIAGNOSIS: Degenerative joint disease, right knee, tricompartmental. BRIEF HISTORY: Sierra is a 53-year-old female who has had progressive complaints of right knee pain. She has tried and failed conservative treatment. At that time, surgical treatment was recommended. On October 10, 2018, the patient underwent a right total knee arthroplasty using patient-specific instrumentation done by Dr. Madiha Harris. This was done under spinal anesthesia with sedation. Estimated blood loss was 50 mL. Tourniquet time was 47 minutes. There were no known complications. Upon completion of procedure, the patient was transferred to the PACU and subsequently to Med/Surg for postoperative care. HOSPITAL COURSE: Postoperatively, the patient did well. She received 2 doses of antibiotics postoperatively for a total of 24 hours of antibiotic coverage. Her pain was controlled with a combination of oral and IV pain medications. Physical Therapy followed her through her hospital stay. Aspirin 325 mg was started on postoperative day #1 as DVT prophylaxis. Her vital signs have been stable. She has been afebrile. Her hemoglobin on the morning of 10/11 was 8.0; however, she is asymptomatic. At this time, the patient is doing well. Her pain is controlled with oral pain medications only. She is ambulating well with a wheeled walker. She is tolerating oral intake. She feels comfortable with discharge to home. DISCHARGE MEDICATIONS: 1. Percocet 5/325. 2. Celebrex 200 mg. 3. Colace 100 mg. 4. MiraLAX. 5. Aspirin 325 mg. DISCHARGE INSTRUCTIONS: For complete discharge instructions, please refer back to Dr. Harris's postoperative total knee arthroplasty patient instructions. For complete medication reconciliation, please refer back to the patient's EHR. Should she have questions or concerns prior to her followup appointment, she has been advised to contact the clinic. JANEL TRIPATHI /[phone]
== END 2018-10-11 13:50 | disposition home or self-care (01) | DRG 302 ==
LOC: MW.MS 06:24 → EDSTATUS 08:00
PROVIDERS: ADMIT Orthopaedic Surgery; ATTEND Orthopaedic Surgery
PROC: 0SRC0J9 Replacement of Right Knee Joint with Synthetic Substitute, Cemented, Open Approach (ICD-10-PCS; principal; 2018-10-10)
DX: M17.11 Unilateral primary osteoarthritis, right knee (principal); E66.01 Morbid (severe) obesity due to excess calories; D64.9 Anemia, unspecified; Z91.048 Other nonmedicinal substance allergy status; Z88.5 Allergy status to narcotic agent
CPT/HCPCS: 36415; 73560-26-RT; 73560-RT; 81025; 85014; 85018; 85049; 86850; 86900; 86901; 97110-GP; 97161-GP; A4217; A9270-GY; C1713; C1776; J0131; J0171; J0690; J0735; J1170; J1885; J2250; J2405; J2704; J2795; J3010; J3490; J7050; J7120